=== PATIENT | female | born 1990 | race Caucasian/White ===

== ENCOUNTER 2024-02-03 14:08 | Emergency (ER) | payer OTHER ==
[~2024-02-03] VITALS: Ht 162.6 cm; Wt 60.0 kg
[~2024-02-03 14:08] MED LIST: IBUP-2030 MT; NAPR-681 PO
[2024-02-03 14:10] VITALS: PULSE 97
[2024-02-03 14:36] VITALS: BP 123/72; RESP 18; TEMP 98.1; O2SAT 100
== END 2024-02-03 18:23 | disposition left against medical advice (07) ==
LOC: ER 14:42
DX: R07.89 Other chest pain (principal); Z53.21 Procedure and treatment not carried out due to patient leaving prior to being seen by health care provider
CPT/HCPCS: 71045; 93005

== ENCOUNTER 2024-02-28 19:11 | Emergency (ER) | payer OTHER ==
[~2024-02-28] VITALS: Ht 157.5 cm; Wt 64.0 kg
[2024-02-28 19:31] VITALS: BP 130/65; O2SAT 100
[2024-02-28] MEDS ORDERED: LIDO700A15 TP (20:49)
[2024-02-28] MEDS ORDERED: NAPR-679 MT (20:49)
[2024-02-28] MEDS ORDERED: TOPUD MT (20:49)
[2024-02-28 21:00] VITALS: PULSE 80; RESP 16; TEMP 98.4
== END 2024-02-28 21:08 | disposition home or self-care (01) ==
LOC: ER 19:11
DX: S83.8X1A Sprain of other specified parts of right knee, initial encounter (principal); Z98.890 Other specified postprocedural states; Z79.899 Other long term (current) drug therapy; X58.XXXA Exposure to other specified factors, initial encounter; Y93.89 Activity, other specified; Y92.89 Other specified places as the place of occurrence of the external cause; Y99.8 Other external cause status
CPT/HCPCS: 73562; 99283

== ENCOUNTER 2024-05-25 18:15 | Emergency (ER) | payer OTHER ==
[~2024-05-25] VITALS: Ht 152.4 cm; Wt 57.0 kg
[~2024-05-25 18:15] MED LIST changes: +LIDO700A15 TP; +NAPR-679 MT; +TOPUD MT
[2024-05-25 18:26] VITALS: BP 128/72; PULSE 86; RESP 18; TEMP 98.6; O2SAT 99
[2024-05-25 19:30] LABS: CLARITY URINE TURBID (CLEAR); COLOR URINE DARK YELLOW (YELLOW); GLUCOSE URINE NEGATIVE (NEGATIVE); KETONES URINE 1+ (NEGATIVE); LEUKOCYTE ESTERASE URINE 2+ (NEGATIVE); NITRITE URINE NEGATIVE (NEGATIVE); OCCULT BLOOD URINE 2+ (NEGATIVE); PROTEIN URINE 1+ (NEGATIVE); SPECIFIC GRAVITY URINE 1.036 (1.005-1.030)
[2024-05-25 19:58] LABS: BACTERIA URINE 3+; SQUAMOUS EPITHELIAL CELL URINE 2+ /lpf (RARE/1+)
[2024-05-25 20:23] LABS: BASOPHILS % 0.5 % (0.0-2.0); EOSINOPHILS % 0.2 % (0.0-5.0); HEMOGLOBIN. 13.3 g/dL (12.0-16.0); LYMPHOCYTES % 16.4 % (20.0-50.0); MEAN CORPUSCULAR HEMOGLOBIN 30.3 pg (28.0-32.0); MEAN CORPUSCULAR HGB CONC 33.2 g/dL (31.0-37.0); MEAN CORPUSCULAR VOLUME 91.2 fL (81.0-99.0); MEAN PLATELET VOLUME 7.3 fl (7.4-10.4); MONOCYTES % 8.8 % (2.0-8.0); NEUTROPHILS % 74.1 % (40.0-76.0); PLATELET 390 x1000/uL (130-400); RED BLOOD CELL COUNT 4.39 mill/uL (4.2-5.4); RED CELL DISTRIBUTION WIDTH 14.2 % (11.6-14.6); WHITE BLOOD COUNT 8.6 x1000/uL (4.5-11.0)
[2024-05-25 20:30] LABS: CHLORIDE 100 mEq/L (98-107); POTASSIUM 3.6 mEq/L (3.5-5.1); SODIUM 135 mEq/L (136-145)
[2024-05-25 20:31] LABS: CARBON DIOXIDE 29 mEq/L (21-32)
[2024-05-25 20:32] LABS: CALCIUM 9.2 mg/dL (8.7-10.4)
[2024-05-25 20:36] LABS: CREATININE 0.7 mg/dL (0.6-1.0); GLUCOSE 100 mg/dL (70-105); TROPONIN I HIGH SENSITIVITY 6 ng/L (3.0-34)
[2024-05-25 20:37] LABS: UREA NITROGEN BLOOD 11 mg/dL (9-23)
[2024-05-25] MEDS ORDERED: NITROFURANTOIN 100MG M/M CAPSULE PO STA (21:07)
[2024-05-25] MEDS ORDERED: MAGNESIUM/ALUMINUM HYDROXIDE/SIMETHICONE 30ML UDC PO ONE (21:15)
[2024-05-25] MEDS ORDERED: FAMOTIDINE 20MG TABLET PO ONE (21:15)
[2024-05-25 21:59] LABS: HCG SCREEN NEGATIVE
[2024-05-25 22:05] LABS: ALANINE AMINOTRANSFERASE 16 IU/L (10-49); ALBUMIN 4.2 g/dL (3.2-4.8); ASPARTATE AMINOTRANSFERASE 25 IU/L (<34); BILIRUBIN DIRECT 0.2 mg/dL (<=3.0); BILIRUBIN TOTAL 0.7 mg/dL (0.1-1.0); PROTEIN TOTAL 7.3 g/dL (6.0-8.3)
[2024-05-25] MEDS ORDERED: NITR-87 MT (22:23)
[2024-05-25] MEDS ORDERED: MAG-55 MT (22:23)
[2024-05-25] MEDS ORDERED: FAMO-135 MT (22:23)
[2024-05-25] MEDS ORDERED: FAMOTIDINE 20MG TABLET PO NR (22:45)
[2024-05-25] MEDS ORDERED: NITROFURANTOIN 100MG M/M CAPSULE PO NR (22:45)
[2024-05-25] MEDS ORDERED: MAGNESIUM/ALUMINUM HYDROXIDE/SIMETHICONE 30ML UDC PO NR (22:45)
== END 2024-05-25 22:42 | disposition home or self-care (01) ==
LOC: ER 18:15
DX: R07.89 Other chest pain (principal); N39.0 Urinary tract infection, site not specified; Z87.891 Personal history of nicotine dependence; Z79.1 Long term (current) use of non-steroidal anti-inflammatories (NSAID); Z98.890 Other specified postprocedural states
CPT/HCPCS: 36415; 71045; 80048; 80076; 81003; 84484; 84703; 85025; 93005; 99285

== ENCOUNTER 2025-03-04 08:29 | Emergency (ER) | payer OTHER ==
[~2025-03-04] VITALS: Ht 152.4 cm; Wt 60.0 kg
[~2025-03-04 08:29] MED LIST changes: +FAMO-135 MT; +LIDO-53 TP; -LIDO700A15 TP; +MAG-55 MT; +NITR-87 MT
[2025-03-04 08:31] VITALS: O2SAT 100
[2025-03-04] MEDS: DEXAMETHASONE 10 MG/ML VIAL PO ONE (09:29)
[2025-03-04] MEDS: CETIRIZINE 10MG TABLET PO SCH (09:29)
[2025-03-04 10:52] VITALS: BP 107/71; PULSE 70; RESP 16; TEMP 37.1; O2SAT 100
== END 2025-03-04 11:03 | disposition home or self-care (01) ==
LOC: ER 08:29
DX: R20.2 Paresthesia of skin (principal); Z98.890 Other specified postprocedural states
CPT/HCPCS: 99283; J1100; Z7610

== ENCOUNTER 2025-05-19 22:47 | Emergency (ER) | payer SELFPAY ==
[~2025-05-19] VITALS: Ht 152.4 cm; Wt 59.0 kg
[2025-05-19 23:21] VITALS: O2SAT 99
[2025-05-19 23:28] LABS: BASOPHILS % 0.9 % (0.0-2.0); EOSINOPHILS % 0.4 % (0.0-5.0); HEMATOCRIT. 41.1 % (36.0-48.0); HEMOGLOBIN. 14.0 g/dL (12.0-16.0); LYMPHOCYTES % 15.4 % (20.0-50.0); MEAN PLATELET VOLUME 7.2 fl (7.4-10.4); MONOCYTES % 5.3 % (2.0-8.0); NEUTROPHILS % 78.0 % (40.0-76.0); PLATELET 448 x1000/uL (130-400); RED BLOOD CELL COUNT 4.76 mill/uL (4.2-5.4); RED CELL DISTRIBUTION WIDTH 15.4 % (11.6-14.6)
[2025-05-19 23:33] LABS: CLARITY URINE Clear (CLEAR); COLOR URINE YELLOW (YELLOW); LEUKOCYTE ESTERASE URINE NEGATIVE (NEGATIVE); NITRITE URINE NEGATIVE (NEGATIVE); OCCULT BLOOD URINE NEGATIVE (NEGATIVE)
[2025-05-19 23:42] LABS: CREATININE 0.7 mg/dL (0.6-1.0); UREA NITROGEN BLOOD 13 mg/dL (9-23)
[2025-05-20 00:16] LABS: ASPARTATE AMINOTRANSFERASE 28 IU/L (<34); BILIRUBIN DIRECT 0.1 mg/dL (<=3.0); BILIRUBIN TOTAL 0.5 mg/dL (0.1-1.0); PROTEIN TOTAL 8.2 g/dL (6.0-8.3)
[2025-05-20] MEDS: SODIUM CHLORIDE 0.9% 1,000 ML IV ONE (00:32)
[2025-05-20] MEDS: ONDANSETRON HCL 4MG/2ML INJ IV ONE (00:32)
[2025-05-20] MEDS: FAMOTIDINE 20MG/2ML VIAL IV ONE (00:32)
[2025-05-20] MEDS: KETOROLAC 15MG/ML VIAL IV ONE (00:33)
[2025-05-20 00:36] VITALS: TEMP 36.7
[2025-05-20] MEDS ORDERED: FAMO-135 MT (02:05)
[2025-05-20] MEDS ORDERED: ONDA4TAB50 MT (02:05)
[2025-05-20 02:23] VITALS: BP 124/73; PULSE 89; RESP 14; O2SAT 96
== END 2025-05-20 02:40 | disposition home or self-care (01) ==
LOC: ER 22:47
DX: K80.20 Calculus of gallbladder without cholecystitis without obstruction (principal); F10.90 Alcohol use, unspecified, uncomplicated; Z79.1 Long term (current) use of non-steroidal anti-inflammatories (NSAID); Y90.9 Presence of alcohol in blood, level not specified
CPT/HCPCS: 80076; 80048; 81003; 81025; 83690; 85025; 36415; 76705; 99285; 96361; 96374; 96375; J7030; J1308; J1885; J2405; Z7610 ×3; A4606